=== PATIENT | female | born 1970 | race Caucasian/White ===

== ENCOUNTER 2017-05-28 10:10 | Emergency (ER) | payer BC, MEDICAID ==
[~2017-05-28] VITALS: Ht 165.1 cm; Wt 54.5 kg
[~2017-05-28 10:10] MED LIST: CIPR500T4 PO
[2017-05-28 10:21] VITALS: Ht 165.1 cm; Wt 54.5 kg
[2017-05-28] MEDS ORDERED: POLY10DR19 LEFT EYE (11:50)
[2017-05-28] MEDS ORDERED: KETO5DRO71 BOTH EYES (11:50)
[2017-05-28] MEDS ORDERED: FLUORESCEIN STRIP ONE (12:03)
[2017-05-28] MEDS ORDERED: OFLO5DRO46 LEFT EYE (12:04)
[2017-05-28] MEDS ORDERED: FLUORESCEIN STRIP LEFT EYE ONE (12:30)
[2017-05-28] MEDS ORDERED: TETRACAINE 0.5% 4 ML OPH LEFT EYE ONE (12:30)
--- NOTE | 2017-05-28 14:37 | ERD ---
ER Documentation Chief Complaint Chief Complaint left facial pain since last night, no injury HPI 46-year-old female complaining of left eye pain this morning. Patient stated that she had bilateral eye itchiness for the past 2 weeks. She had been rubbing her eyes. The eye pain started this morning upon awake, she also noticed some white discharge. Patient wears soft contact lenses. She takes them out and clean them every night, and change them once a month. Denies eye injury. Denies fever or chills. Denies blurry vision. Denies purulent discharge from the eye. ROS All systems reviewed and are negative except as per history of present illness. Medications Home Meds Active Scripts Ofloxacin* (Ocuflox*) 0.3%-5 Ml Ophth Drops, 1 DROP LEFT EYE QID for 7 Days, BOTTLE Prov:VALERIA SWEENEY. STOREROOM SUPERVISOR 05/28/17 Ketotifen Fumarate (ZADITOR) 5 Ml Drops, 1 DROP BOTH EYES Q12 Y for ITCHING, #1 BOTTLE Prov:VALERIA SWEENEY STOREROOM SUPERVISOR 05/28/17 Ciprofloxacin Hcl* (Ciprofloxacin Hcl*) 500 Mg Tablet, 500 MG PO BID for 10 Days , TAB Prov:RE BOWIE 04/07/15 Discontinued Scripts Polymyxin B Sulfate-TMP* (Polymyxin B-TMP Eye Drops*) 10 Ml Drops, 1 DROP LEFT EYE Q4 for 7 Days, EA Prov:VALERIA SWEENEY STOREROOM SUPERVISOR 05/28/17 Allergies Allergies: Coded Allergies: No Known Allergy (Unverified , 05/28/17) PMhx/Soc Medical and Surgical Hx: pt denies Medical Hx, pt denies Surgical Hx Hx Alcohol Use: No Hx Substance Use: No Hx Tobacco Use: No Physical Exam Vitals Vital Signs Date Time Temp Pulse Resp B/P Pulse Ox O2 Delivery O2 Flow Rate FiO2 05/28/17 10:21 98.4 87 18 116/58 96 Physical Exam General: Well-developed, well-nourished, conscious and coherent, in no distress Skin: Warm and dry without rash, good texture and turgor Head: Normocephalic without evidence of trauma Eyes: Sclera and conjunctivae injected bilaterally, more on the left than right. Pupils equal, round, and reactive to light; extraocular movements are intact Chest: Normal AP diameter. Good expansion without retractions. Nontender. Lungs are clear to auscultate bilaterally with good tidal volume Heart: Regular rate and rhythm. No murmur, rub, or gallops heard Extremities: Full range of motion. Good strength bilaterally. No clubbing, cyanosis, or edema. Peripheral pulses are intact. Sensation intact Neuro: Alert and oriented 4, GCS 15. Cranial nerves grossly intact. Motor and sensory exams nonfocal. Moves all extremities. Speech clear. Gait normal Results 24 hrs Current Medications Medications (Trade) Dose Ordered Sig/Raheem Route PRN Reason Start Time Stop Time Status Last Admin Dose Admin Tetracaine HCl (Tetracaine 0.5% Steri-Unit Clara) 1 drop ONCE ONCE LEFT EYE 05/28/17 12:30 05/28/17 12:30 DC Fluorescein Sodium (Pkejs-M-Dbxsl) 1 strip ONCE ONCE LEFT EYE 05/28/17 12:30 05/28/17 12:30 DC Fluorescein Sodium (Vvvtq-O-Yhoig) 1 strip STK-MED ONCE .ROUTE 05/28/17 12:03 05/28/17 12:04 DC Procedures/MDM Well-appearing 46-year-old female complaining of left eye pain 1 day, and bilateral eye itchiness 2 weeks. I suspect patient has allergic conjunctivitis , with secondary infectious conjunctivitis on the left. Patient is a contact lens wearer, Wood's lamp exam is performed. Tetracaine ophthalmic solution was instilled into patient's left eye. Fluoresceins dye was then applied. Patient was examined under Wood's lamp. No dye uptake was noted. No sign of corneal abrasion or corneal ulcer. Because patient wears contact lenses, ofloxacin ophthalmic was prescribed. Patient also given prescription of Zaditor for allergic conjunctivitis. Patient is advised to follow-up with roll icer if symptoms does not improve or worsens. Patient also advised to stop wearing contact lenses until her symptoms resolved. Patient appears well, stable for discharge and outpatient management. Medical decision making shared with patient and family. Education provided to patient and family. Patient and family expressed understanding of the plan. Medications on discharge: Ofloxacin ophthalmic, Zaditor. Follow-up: Hydraulic Elevator Constructor if no improvement or worse. Disclaimer: Inadvertent spelling and grammatical errors are likely due to EHR/ dictation software use and do not reflect on the overall quality of patient care. Also, please note that the electronic time recorded on this note does not necessarily reflect the actual time of the patient encounter. Departure Diagnosis: Primary Impression: Conjunctivitis Condition: Stable Patient Instructions: Conjunctivitis, Allergic Referrals: [facility] YOU HAVE RECEIVED A MEDICAL SCREENING EXAM AND THE RESULTS INDICATE THAT YOU DO NOT HAVE A CONDITION THAT REQUIRES URGENT TREATMENT IN THE EMERGENCY DEPARTMENT. FURTHER EVALUATION AND TREATMENT OF YOUR CONDITION CAN WAIT UNTIL YOU ARE SEEN IN YOUR DOCTORS OFFICE WITHIN THE NEXT 1-2 DAYS. IT IS YOUR RESPONSIBILITY TO MAKE AN APPOINTMENT FOR FOLOW-UP CARE. IF YOU HAVE A PRIMARY DOCTOR --you should call your primary doctor and schedule an appointment IF YOU DO NOT HAVE A PRIMARY DOCTOR YOU CAN CALL OUR PHYSICIAN REFERRAL HOTLINE AT IF YOU CAN NOT AFFORD TO SEE A PHYSICIAN YOU CAN CHOSE FROM THE FOLLOWING [facility] [address] [facility]. [facility] [address] [facility] [facility] [address] [facility] [facility] [address] [facility] [facility] [place] [address] [facility]. [facility] [address] [facility]. [facility] Hours: Mon - Fri 9:00 AM - 5:00 PM Additional Instructions: Call your primary care doctor TOMORROW for an appointment during the next 2-3 days. See an roll icer if no improvement or worse. VALERIA SWEENEY NP May 28, 2017 14:37
== END 2017-05-28 12:20 | disposition home or self-care (01) ==
LOC: FTE 10:10
DX: H10.9 Unspecified conjunctivitis (principal)
CPT/HCPCS: Z7502; Z7610; 99284